=== PATIENT | female | born 2000 | race African-American/Black ===

== ENCOUNTER 2023-03-19 17:30 | Emergency (ER) | payer SELFPAY ==
[~2023-03-19] VITALS: Ht 152.4 cm; Wt 45.0 kg
[2023-03-19 17:33] VITALS: BP 114/75; PULSE 77; RESP 14; TEMP 98.9
[2023-03-19] MEDS ORDERED: ONDANSETRON 4MG ODT PO ONE (18:00)
== END 2023-03-20 01:33 | disposition left against medical advice (07) ==
LOC: ER 17:30
DX: R55 Syncope and collapse (principal)
CPT/HCPCS: 99283; 93005; Q0162